=== PATIENT | female | born 1965 | race Two or more races ===

== ENCOUNTER 2020-01-10 22:54 | Emergency (ER) | payer BC, MEDICAID ==
[~2020-01-10] VITALS: Ht 154.9 cm; Wt 81.6 kg
[2020-01-10] MEDS ORDERED: methylPREDNISolone SOD SUCC 125 MG/2 ML VL IM ONE (23:45)
[2020-01-11 00:43] VITALS: BP 161/69
== END 2020-01-11 | disposition home or self-care (01) ==
LOC: ER 22:54
DX: L27.2 Dermatitis due to ingested food (principal); E11.9 Type 2 diabetes mellitus without complications
CPT/HCPCS: 82962; 96372; 99283; J2930

== ENCOUNTER 2024-09-07 03:16 | Inpatient (IN) | payer BC ==
[~2024-09-07] VITALS: Ht 154.9 cm; Wt 95.5 kg
[2024-09-07] VITALS (36 sets, daily range): BP systolic 80–148; BP diastolic 43–70; PULSE 75–116; RESP 11–25; TEMP 98.2–98.9; O2SAT 92–97
--- NOTE | 2024-09-07 03:58 | ED.PDOC ---
GI ASSESSMENT HPI Comments A 58 year-old female presents to the ED via wheelchair with a chief complaint of LLQ abdominal pain with associated N/V as of 0000 this morning. Patient reports that LLQ abdominal pain is constant, radiates to left back side, with no associated alleviating factors. Patient has no further complaints at this time and otherwise denies further associated symptoms of diarrhea, hematemesis, dysuria, migraine, dizziness, or fever. 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 Family History Family History: Reviewed,noncontributory to illness, No family hx of Cancer, No family hx of DM, No family hx of Heart slick, No family hx of HTN, No family hx ofKidney slick, No family hx of Liver slick, No family hx of Lung slick, No family hx of Stroke Social History Smoker: Non-Smoker Alcohol: Denies ETOH Use Drugs: Denies Drug Use Lives In: Home Constitutional: denies: chills, diaphoresis, fatigue, fever, malaise, sweats, weakness, others EENTM: denies: blurred vision, double vision, ear bleeding, ear discharge, ear drainage, ear pain, ear ringing, eye pain, eye redness, hearing loss, mouth pain, mouth swelling, nasal discharge, nose bleeding, nose congestion, nose pain, photophobia, tearing, throat pain, throat swelling, voice changes, others Respiratory: denies: cough, hemoptysis, orthopnea, SOB at rest, shortness of breath, SOB with excertion, stridor, wheezing, others Cardiovascular: denies: chest pain, dizzy spells, diaphoresis, Dyspnea on exertion, edema, irregular heart beat, left arm pain, lightheadedness, palpitations, PND, syncope, others Gastrointestinal: reports: abdominal pain, nausea, vomiting; denies: abdomen distended, blood streaked bowels, constipated, diarrhea, dysphagia, difficulty swallowing, hematemesis, melena, poor appetite, poor fluid intake, rectal bleeding, rectal pain, others Genitourinary: denies: abnormal vagina bleeding, burning, dyspareunia, dysuria, flank pain, frequency, hematuria, incontinence, pain, , vagina discharge, urgency, others Neurological: denies: dizziness, fainting, headache, left sided numbness, left sided weakness, numbness, paresthesia, pre-existing deficit, right sided numbness, right sided weakness, seizure, speech problems, tingling, tremors, weakness, others Musculoskeletal: denies: back pain, gout, joint pain, joint swelling, muscle pain, muscle stiffness, neck pain, others Integumetry: denies: bruises, change in color, change in hair/nails, dryness, laceration, lesions, lumps, rash, wounds, others Allergic/Immunocompromised: denies: Difficulty Healing, Frequent Infections, Hives, Itching, others Hematologic/Lymphatic: denies: anemia, blood clots, easy bleeding, easy bruising, swollen glands, others Endocrine: denies: excessive hunger, excessive sweating, excessive thirst, excessive urination, flushing, intolerance to cold, intolerance to heat, unexp lained weight gain, unexplained weight loss, others Psychiatric: denies: anxiety, bipolar disorder, depression, hopeless, panic disorder, schizophrenia, sleepless, suicidal, others All Other Systems: Reviewed and Negative Physical Exam General Appearance: Moderate Distress, Obese HEENT: Normal ENT Inspection, Pharynx Normal, TMs Normal Neck: Full Range of Motion, Non-Tender, Normal, Normal Inspection Respiratory: Chest Non-Tender, Lungs Clear, No Accessory Muscle Use, No Respiratory Distress, Normal Breath Sounds Cardiovascular: No Edema, No JVD, No Murmur, No Gallop, Normal Peripheral Pulses, Regular Rate/Rhythm Breast Exam: Deferred Gastrointestinal: No Organomegaly, No Pulsatile Mass, Normal Bowel Sounds, Soft, Tenderness (LLQ) Genitalia: Deferred Pelvic: Deferred Rectal: Deferred Extremities: No calf tenderness, Normal capillary refill, Normal inspection, Normal range of motion, Non-tender, No pedal edema Musculoskeletal : Apperance: Normal Neurologic: Alert, music instructor II-XII nml as Tested, No Motor Deficits, Normal Affect, Normal Mood, No Sensory Deficits Cerebellar Function: Normal Reflexes: Normal Skin: Dry, Normal Color, Warm Lymphatic: No Adenopathy Was a procedure done? Was a procedure done?: No GI differential Dx Differential Diagnosis: Constipation, Gastroenteritis, UTI, Dehydration, Bacterial, Parasitic, Viral X-Ray, Labs, Meds, VS Vital Signs Date Time Temp Pulse Resp B/P (MAP) Pulse Ox O2 Delivery O2 Flow Rate FiO2 09/07/24 06:44 102.5 126 20 149/79 (102) 96 102.5 09/07/24 05:41 126 20 149/79 09/07/24 05:11 109 20 187/59 09/07/24 05:06 98.2 109 20 187/59 (101) 98 98.2 09/07/24 03:35 97.3 86 20 187/68 (107) 98 97.3 Lab Test 09/07/24 04:24 09/07/24 03:45 Range/Units White Blood Count 11.7 H 4.4-10.8 10^3/uL Red Blood Count 4.78 4.0-5.20 10^6/uL Hemoglobin 14.3 12.2-16.2 g/dL Hematocrit 41.3 36.0-46.0 % Mean Corpuscular Volume 86.5 80.0-100.0 fL Mean Corpuscular Hemoglobin 30.0 28.0-32.0 pg Mean Corpuscular Hemoglobin Concent 34.7 32.0-36.0 g/dL Red Cell Distribution Width 13.0 11.8-14.3 % Platelet Count 163 140-450 10^3/uL Mean Platelet Volume 9.3 6.9-10.8 fL Neutrophils (%) (Auto) 89.5 H 37.0-80.0 % Lymphocytes (%) (Auto) 8.4 L 10.0-50.0 % Monocytes (%) (Auto) 1.3 0.0-12.0 % Eosinophils (%) (Auto) 0.3 0.0-7.0 % Basophils (%) (Auto) 0.5 0.0-2.0 % Neutrophils # (Auto) 10.5 H 1.6-8.6 10 ^3/uL Lymphocytes # (Auto) 1.0 0.4-5.4 10 ^3/uL Monocytes # (Auto) 0.2 0-1.3 10 ^3/uL Eosinophils # (Auto) 0 0-0.8 10 ^3/uL Basophils # (Auto) 0.1 0-0.2 10 ^3/uL Nucleated Red Blood Cells 0.0 % Sodium Level 137 136-145 mmol/L Potassium Level 4.0 3.5-5.1 mmol/L Chloride Level 101 98-107 mmol/L Carbon Dioxide Level 24 20-31 mmol/L Anion Gap 12 5-15 Blood Urea Nitrogen 31 H 9-23 mg/dL Creatinine 1.00 0.550-1.02 mg/dL Glomerular Filtration Rate Calc 65 >90 mL/min BUN/Creatinine Ratio 31.0 H 10.0-20.0 Serum Glucose 423 *H 74-106 mg/dL Calcium Level 9.3 8.7-10.4 mg/dL Total Bilirubin 0.5 0.2-1.0 mg/dL Aspartate Amino Transferase (AST) 16 13-40 U/L Alanine Aminotransferase (ALT) 21 7-40 U/L Alkaline Phosphatase 151 H 46-116 U/L Total Protein 7.3 5.7-8.2 g/dL Albumin 4.0 3.2-4.8 g/dL Lipase 47 12-53 U/L Urine Color Colorless Yellow Urine Clarity Clear Clear Urine pH 7.5 5.0-9.0 Urine Specific [place] 1.018 1.001-1.035 Urine Protein 1+ H Negative Urine Ketones Trace Negative Urine Blood Trace H Negative /uL Urine Nitrite Negative Negative Urine Bilirubin Negative Negative Urine Urobilinogen Normal Negative mg/dL Urine Leukocyte Esterase Negative Negative /uL Urine RBC 11 0 - 4 /hpf Urine Microscopic WBC 6 H 0-5 /HPF Urine Squamous Epithelial Cells Few <5 /hpf Urine Bacteria None seen None Seen /hpf Urine Glucose 4+ H Normal mg/dL Current Medications Medications (Trade) Dose Ordered Sig/Cheryl Route Start Time Stop Time Status Last Admin Ondansetron HCl (Zofran) 4 mg ONCE ONCE IV 09/07/24 04:00 09/07/24 04:01 DC 09/07/24 05:10 Sodium Chloride 1,000 ml @ 1,000 mls/hr Q1H ONCE IVB 09/07/24 04:00 09/07/24 04:59 DC 09/07/24 04:00 Morphine Sulfate 4 mg ONCE ONCE IV 09/07/24 04:00 09/07/24 04:01 DC 09/07/24 05:11 Patient alert. Complaining of abdominal pain nausea vomiting. Vitals stable. Answering questions. Was given pain medication. Was given Zofran. Blood sugar elevated pain Establish intravenous access. Was given fluids. Possible sepsis. Was given antibiotics. Explained to the family. Continue monitoring. Time of 1ST Reevaluation: 04:12 Reevaluation 1ST: Unchanged Patient Education/Counseling: Diagnosis, Treatment Family Education/Counseling: No Family Present SEPSIS Sepsis Screen Physician Orders Ct Ab Pel With Iv Con Only (09/07/24 03:59) Heplock Iv (09/07/24 03:59) Vital Signs Date Time Temp Pulse Resp B/P (MAP) Pulse Ox O2 Delivery O2 Flow Rate FiO2 09/07/24 06:44 102.5 126 20 149/79 (102) 96 102.5 09/07/24 05:41 126 20 149/79 09/07/24 05:11 109 20 187/59 09/07/24 05:06 98.2 109 20 187/59 (101) 98 98.2 09/07/24 03:35 97.3 86 20 187/68 (107) 98 97.3 Laboratory Tests Test 09/07/24 04:24 White Blood Count 11.7 10^3/uL (4.4-10.8) H Medications Medications Dose Ordered Sig/Cheryl Route Start Time Stop Time Status Last Admin Dose Admin Morphine Sulfate 4 mg ONCE ONCE IV 09/07/24 04:00 09/07/24 04:01 DC 09/07/24 05:11 Ondansetron HCl 4 mg ONCE ONCE IV 09/07/24 04:00 09/07/24 04:01 DC 09/07/24 05:10 Sodium Chloride 1,000 ml @ 1,000 mls/hr Q1H ONCE IVB 09/07/24 04:00 09/07/24 04:59 DC 09/07/24 04:00 Departure 1 Departure Time of Disposition: 06:52 Impression: Primary Impression: Sepsis, unspecified organism Qualified Codes: A41.9 - Sepsis, unspecified organism Disposition: 09 ADMITTED INPATIENT Admit to: Med Surg Condition: Guarded Critical Care Note Critical Care Time?: Yes (90 min-critical care time only) Critical care comment: Sepsis monitoring Stability Stability form required: No Heart Score Heart Score: Heart Score Response (Comments) Value History N/A 0 EKG N/A 0 Age N/A 0 Risk Factors N/A 0 Troponin N/A 0 Total 0 I personally scribed for TONIE LATHAM MD ([email or web address]) on 09/07/24 at 03:58. Electronically submitted by Dolly Willams ([email or web address]). I personally scribed for TONIE LATHAM MD ([email or web address]) on 09/07/24 at 05:45. Electronically submitted by Dolly Willams ([email or web address]). TONIE LATHAM MD Sep 07, 2024 03:58 ORVILLE LUGO MD Sep 07, 2024 06:53
[2024-09-07] MEDS: SODIUM CHLORIDE 0.9% 1,000 ML IVB ONE (04:00)
[2024-09-07 04:13] LABS: Urine Protein, UAD 1+ (Negative)
[2024-09-07 04:43] LABS: Hematocrit 41.3 % (36.0-46.0); Hemoglobin 14.3 g/dL (12.2-16.2); Mean Corpuscular Hemoglobin 30.0 pg (28.0-32.0); Mean Corpuscular Volume 86.5 fL (80.0-100.0); Nucleated Red Blood Cells % 0.0 %
[2024-09-07 05:00] LABS: Alanine Aminotransferase 21 U/L (7-40); Albumin 4.0 g/dL (3.2-4.8); Anion Gap 12 (5-15); BUN/Creatinine Ratio 31.0 (10.0-20.0); Bilirubin, Total 0.5 mg/dL (0.2-1.0); Calcium 9.3 mg/dL (8.7-10.4); Carbon Dioxide 24 mmol/L (20-31); Chloride 101 mmol/L (98-107); Lipase 47 U/L (12-53); Potassium 4.0 mmol/L (3.5-5.1); Sodium 137 mmol/L (136-145); Total Protein 7.3 g/dL (5.7-8.2)
[2024-09-07 05:07] LABS: Alkaline Phosphatase 151 U/L (46-116); Blood Urea Nitrogen 31 mg/dL (9-23); Glucose 423 mg/dL (74-106)
[2024-09-07] MEDS: ONDANSETRON HCL 4 MG/2 ML VIAL IV ONE (05:10)
[2024-09-07] MEDS: MORPHINE SULFATE 4 MG/ML SYR/VIAL IV ONE (05:11)
[2024-09-07] MEDS: IOHEXOL 300 MG/ML 100ML BOTTLE IJ ONE (06:46)
[2024-09-07] MEDS: ACETAMINOPHEN 325 MG TAB PO ONE (06:58)
[2024-09-07] MEDS: InsuLIN REG 1unit/0.01ml Soln (100units/ml) IV ONE (07:08)
--- NOTE | 2024-09-07 07:14 | DVH ---
CT CT AB PEL WITH IV CON ONLY INDICATION: LLQ pain EXAM DATE: 09/07/2024 06:24 AM COMPARISON: None RADIATION DOSE: CTDIvol: 21 mGy, DLP: 1339 mGy*cm PROCEDURE: Helical CT images were obtained of the abdomen and pelvis with IV contrast Sagittal and co cinthya reconstructions are provided. ORAL CONTRAST: None. ADDITIONAL IMAGES / REFORMATS: None All CT s cans at this medical facility are performed using dose modulation techniques as appropriate to a perf ormed exam including the following: Automated exposure control was utilized; adjustment of the MA and /or KV according to patient size; and use of iterative reconstruction technique. FINDINGS: LUNG BASE: Bibasilar atelectasis. LIVER: Normal. GALLBLADDER AND BILIARY TREE: Ryann clips. No intra- or extrahepatic biliary ductal dilation. PANCREAS: Normal. SPLEEN: Normal. BOWEL: Normal. Normal appendix. ADRENALS: Normal. KIDNEYS AND URETER: Mild left perinephric fat stranding and hydronephrosis but no kidney stone visual ized. BLADDER: Normal. REPRODUCTIVE ORGANS: Absent uterus. LYMPH NODES:No lymphadenopathy. PERITONEUM: No ascites or free air. No other fluid collection. VESSELS: Scattered atherosclerotic calcifications are noted. RETROPERITONEUM: Normal. ABDOMINAL WALL: Normal. BONES: Scattered osseous degenerative changes are noted. IMPRESSION: Mild left perinephric fat stranding and hydronephrosis but no kidney stone visualized.
--- NOTE | 2024-09-07 07:23 | DVH ---
CHEST RADIOGRAPH Indication: sob Technique: Single frontal view of the chest was obtained COMPARISON: None FINDINGS: Lines and Tubes: None Lungs: Mild increased interstitial prominence Pleura: No effusion. No pneumothorax. Cardiomediastinal contours: Unremarkable Bones: Unremarkable IMPRESSION: Viral pneumonia or mild pulmonary vascular congestion
[2024-09-07] MEDS ORDERED: ONDANSETRON HCL 4 MG/2 ML VIAL IV PRN (07:30)
[2024-09-07] MEDS ORDERED: TAMSULOSIN HYDROCHLORIDE 0.4 MG CAP PO ONE (07:30)
[2024-09-07] MEDS ORDERED: NITROGLYCERIN 0.4 MG SL TAB SL PRN ×3 (07:30→08:45)
[2024-09-07] MEDS ORDERED: DOCUSATE SOD 100 MG CAP PO PRN ×2 (07:30→07:45)
[2024-09-07] MEDS ORDERED: DEXTROSE (50%) 50ML SYRG IV PRN ×2 (07:30→07:45)
[2024-09-07] MEDS ORDERED: MORPHINE SULFATE INJ 2 MG/ml SYRG IV PRN (07:30)
[2024-09-07] MEDS ORDERED: SODIUM CHLORIDE 0.9% 1,000 ML IV ONE (07:30)
[2024-09-07] MEDS ORDERED: SODIUM CHLORIDE 0.9% 1,000 ML IV SCH (07:30)
[2024-09-07] MEDS ORDERED: cefTRIAXone 1GM/50ML D5W 50 ML IV ONE ×2 (07:30→07:58)
[2024-09-07 07:42] LABS: INR 0.97 (0.9-1.15); Partial Thromboplastin Time 23.8 SEC (24.5-34.5); Prothrombin Time 10.3 sec (9.3-11.8)
--- NOTE | 2024-09-07 08:01 | DVHHP2 ---
History of Present Illness Reason for Visit: Abdominal pain History of Present Illness 58-year-old female past medical history diabetes denies any surgical history chief complaint patient is with limited information on my exam appears to be in pain but she complains of left lower quadrant abdominal pain that started this morning. Patient states the pain starts in her left flank and radiates to the front lower abdomen. Does have nausea and vomiting no fever no chest pain no shortness with the breath patient denies any blood in her urine no diarrhea no black stools or blood in her stools. When evaluating patient's labs and imaging white count was found to be 11.7 otherwise CBC was unremarkable CMP shows a glucose of 423 but gap and CO2 is in normal range not likely DKA urine we will glucose and bacteria. CT scan abdomen pelvis shows left perinephric fat stranding and hydronephrosis but no kidney stone visualized. With these findings we will admit patient for IV antibiotics and pain management Past Medical History See HPI above Past Surgical History See HPI above Family History Reviewed, non-contributory to the management of this case. Past Social History The patient lives at home, denies smoking, alcohol or illicit drugs abuse. Review of Systems Constitutional: No: Fever, Chills, Sweats, Weakness, Malaise, Other Eyes: No: Pain, Vision change, Conjunctivae inflammation, Eyelid inflammation, Other, Redness Respiratory: No: Cough, Dry, Shortness of breath, SOB with excertion, Wheezing, Hemoptysis, Pleuritic Pain, Sputum, Wheezing, Other Cardiovascular: No: Chest Pain, Palpitations, Orthopnea, Paroxysmal Noc. Dyspn ea, Edema, Lt Headedness, Other Gastrointestinal: Abdominal Pain; No: Nausea, Vomiting, Diarrhea, Constipation, Melena, Hematochezia, Other Genitourinary: No Dysuria, No Frequency, No Incontinence, No Hematuria, No Retention, No Other Musculoskeletal: No: other, neck pain, shoulder pain, arm pain, back pain, hand pain, leg pain, foot pain Skin: No: Rash, Lesions, Jaundice, Bruising, Other Neurological: No: Weakness, Numbness, Incoordination, Change in speech, Confusion, Seizures, Other Allergies: Coded Allergies: Codeine (Verified Adverse Reaction, Severe, 12/08/12) Medications Current Medications Medications Dose Ordered Sig/Cheryl Route Start Time Stop Time Status Last Admin Dose Admin Cefepime HCl 50 ml @ 12.5 mls/hr Q8HR IV 09/07/24 14:00 Exam Vital Signs Vital Signs Date Time Temp Pulse Resp B/P (MAP) Pulse Ox O2 Delivery O2 Flow Rate FiO2 09/07/24 06:58 102.5 09/07/24 06:44 126 20 149/79 (102) 96 General Appearance: Alert, Oriented X3, Cooperative, No acute distress HEENT: Atraumatic, PERRLA, EOMI, Mucous membr. moist/pink Respiratory: Clear to auscultation, Normal air movement Cardiovascular: Regular rate, Normal S1, Normal S2, No murmurs Abdominal: Normal bowel sounds, Soft, No tenderness, No hepatospenomegaly, No masses Extremities: No clubbing, No cyanosis, No edema, Normal pulses, No tenderness/swelling Skin: No rashes, No breakdown, No significant lesion Neuro: Normal gait, Normal speech, Strength at 5/5 X4 ext, Normal tone, Sensation intact, Cranial nerves 3-12 NL Psych/Mental Status: Mental status NL, Mood NL Labs/Xrays CT scan abdomen pelvis shows left perinephric fat stranding and hydronephrosis but no kidney stone visualized. I reviewed labs, imaging CT scan abdomen pelvis, EKG and all diagnostic studies on this patient from ED records and the medical chart Labs Test 09/07/24 06:52 09/07/24 04:24 09/07/24 03:45 Range/Units POC Glucose 363 H 70-106 mg/dl White Blood Count 11.7 H 4.4-10.8 10^3/uL Red Blood Count 4.78 4.0-5.20 10^6/uL Hemoglobin 14.3 12.2-16.2 g/dL Hematocrit 41.3 36.0-46.0 % Mean Corpuscular Volume 86.5 80.0-100.0 fL Mean Corpuscular Hemoglobin 30.0 28.0-32.0 pg Mean Corpuscular Hemoglobin Concent 34.7 32.0-36.0 g/dL Red Cell Distribution Width 13.0 11.8-14.3 % Platelet Count 163 140-450 10^3/uL Mean Platelet Volume 9.3 6.9-10.8 fL Neutrophils (%) (Auto) 89.5 H 37.0-80.0 % Lymphocytes (%) (Auto) 8.4 L 10.0-50.0 % Monocytes (%) (Auto) 1.3 0.0-12.0 % Eosinophils (%) (Auto) 0.3 0.0-7.0 % Basophils (%) (Auto) 0.5 0.0-2.0 % Neutrophils # (Auto) 10.5 H 1.6-8.6 10 ^3/uL Lymphocytes # (Auto) 1.0 0.4-5.4 10 ^3/uL Monocytes # (Auto) 0.2 0-1.3 10 ^3/uL Eosinophils # (Auto) 0 0-0.8 10 ^3/uL Basophils # (Auto) 0.1 0-0.2 10 ^3/uL Nucleated Red Blood Cells 0.0 % Sodium Level 137 136-145 mmol/L Potassium Level 4.0 3.5-5.1 mmol/L Chloride Level 101 98-107 mmol/L Carbon Dioxide Level 24 20-31 mmol/L Anion Gap 12 5-15 Blood Urea Nitrogen 31 H 9-23 mg/dL Creatinine 1.00 0.550-1.02 mg/dL Glomerular Filtration Rate Calc 65 >90 mL/min BUN/Creatinine Ratio 31.0 H 10.0-20.0 Serum Glucose 423 *H 74-106 mg/dL Calcium Level 9.3 8.7-10.4 mg/dL Total Bilirubin 0.5 0.2-1.0 mg/dL Aspartate Amino Transferase (AST) 16 13-40 U/L Alanine Aminotransferase (ALT) 21 7-40 U/L Alkaline Phosphatase 151 H 46-116 U/L Total Protein 7.3 5.7-8.2 g/dL Albumin 4.0 3.2-4.8 g/dL Lipase 47 12-53 U/L Urine Color Colorless Yellow Urine Clarity Clear Clear Urine pH 7.5 5.0-9.0 Urine Specific [place] 1.018 1.001-1.035 Urine Protein 1+ H Negative Urine Ketones Trace Negative Urine Blood Trace H Negative /uL Urine Nitrite Negative Negative Urine Bilirubin Negative Negative Urine Urobilinogen Normal Negative mg/dL Urine Leukocyte Esterase Negative Negative /uL Urine RBC 11 0 - 4 /hpf Urine Microscopic WBC 6 H 0-5 /HPF Urine Squamous Epithelial Cells Few <5 /hpf Urine Bacteria None seen None Seen /hpf Urine Glucose 4+ H Normal mg/dL SEPSIS Sepsis Screen Date sepsis recognized/suspect: Sep 07, 2024 Time Sepsis recognized/suspect: 505 Recent Procedure: No On Antibiotic Therapy: No Respiratory Rate >20: No Heart Rate >90: Yes Temp<36 C (96.8 F) or >38.3 C: No SBP <90 or MAP <65 mmHG: No New Acute Mental Status Change: No Is the patient on CPAP, BIPAP,: No Physician Orders Ct Ab Pel With Iv Con Only (09/07/24 03:59) Heplock Iv (09/07/24 03:59) PTPTT (09/07/24 06:49) Urinalysis (09/07/24 06:49) Chest Portable (09/07/24 06:49) Accucheck (09/07/24 06:49) Blood Culture (09/07/24 06:49) Vancomycin 1gm/200ml Pm (09/07/24 07:00) Lactic Acid W/ Reflex Order (09/07/24 08:00) Cefepime 1gm/ 50ml (Maxipime 1gm/50ml) (09/07/24 14:00) Notify Md If Map <65 Or Bp<90 (09/07/24 06:49) If Map<65 Start Vasopressor (09/07/24 06:49) Sepsis Reassesment After Fluid (09/07/24 07:49) Admit (09/07/24 07:27) Allergies (09/07/24 07:27) Code Status (09/07/24 07:27) 0.9% Ns 1000 Ml (09/07/24 07:30) Ondansetron Hcl (Zofran) (09/07/24 07:30) Docusate Sodium Capsule (Colace Capsule) (09/07/24 07:30) Complete Blood Count (09/08/24 04:00) Comprehensive Metabolic Panel (09/08/24 04:00) Npo (Nothing By Mouth) Diet (09/07/24 Breakfast) Condition: Stable (09/07/24 07:27) BRP (09/07/24 07:27) Morphine Sulfate Injection (09/07/24 07:30) Sequential Compression Device (09/07/24 ) Nitroglycerin Sublingual (Ntrostat Subli (09/07/24 07:30) Stat Ekg For Chest Pain (09/07/24 07:27) Notify Of Changes From Base (09/07/24 07:27) Bursar For 24 Hours (09/07/24 07:27) Emergency Dysrhythmia Protocol (09/07/24 07:27) Rhythm Strips Once Every Shift (09/07/24 07:27) Oxygen By Nasal Cannula (09/07/24 07:27) NS (09/07/24 07:30) Glucose Blood (Accu-Chek Comfort Curve T (09/07/24 12:00) Mild Sliding Scale Npo - Q6hr (09/07/24 12:00) Dextrose 50% Syringe (09/07/24 07:30) Ceftriaxone Ivpb Rocephin (09/07/24 09:00) Ceftriaxone Ivpb Rocephin (09/07/24 07:30) Urine Bacterial Culture (09/07/24 07:27) Tamsulosin Hydrochloride (Flomax) (09/07/24 07:30) Tamsulosin Hydrochloride (Flomax) (09/07/24 18:00) Vital Signs Date Time Temp Pulse Resp B/P (MAP) Pulse Ox O2 Delivery O2 Flow Rate FiO2 09/07/24 06:58 102.5 09/07/24 06:44 102.5 126 20 149/79 (102) 96 102.5 09/07/24 05:41 126 20 149/79 09/07/24 05:11 109 20 187/59 09/07/24 05:06 98.2 109 20 187/59 (101) 98 98.2 09/07/24 03:35 97.3 86 20 187/68 (107) 98 97.3 Laboratory Tests Test 09/07/24 04:24 White Blood Count 11.7 10^3/uL (4.4-10.8) H Medications Medications Dose Ordered Sig/Cheryl Route Start Time Stop Time Status Last Admin Dose Admin Acetaminophen 650 mg ONCE ONCE PO 09/07/24 07:00 09/07/24 07:01 DC 09/07/24 06:58 650 MG Insulin Human Regular 6 units ONCE ONCE IV 09/07/24 06:30 09/07/24 06:31 DC 09/07/24 07:08 6 UNITS Morphine Sulfate 4 mg ONCE ONCE IV 09/07/24 04:00 09/07/24 04:01 DC 09/07/24 05:11 4 MG Ondansetron HCl 4 mg ONCE ONCE IV 09/07/24 04:00 09/07/24 04:01 DC 09/07/24 05:10 4 MG Sodium Chloride 1,000 ml @ 1,000 mls/hr Q1H ONCE IVB 09/07/24 04:00 09/07/24 04:59 DC 09/07/24 04:00 1,000 MLS/HR Assessment/Plan Assessment/Plan acute intractable abd pain can be from passed stone ct scan left perinephric fat stranding and hydronephrosis but no kidney stone visualized. ordered ceftriaxone for now ordered ivf ordered morphine prn pain ordered flomax acute leukocytosis ordered ua and culture fu results ordered ceftriaxone acute uncontrolled diabetes without dka ordered accucheck q6h for now fen/ppx diet ivf npo for now protonix plan admit to medicine Plan discussed with: Patient My Orders Orders - ARMANDO PUENTES DNP Procedure Category Date Status Time Admit ADMIT 09/07/24 Transmitted 07:27 Allergies [facility] 09/07/24 Transmitted 07:27 Code Status CODE 09/07/24 Transmitted 07:27 0.9% Ns 1000 Ml [facility]A 09/07/24 Transmitted 07:30 Ondansetron Hcl PHA 09/07/24 Transmitted (Zofran) 07:30 Docusate Sodium PHA 09/07/24 Transmitted Capsule (Colace 07:30 Complete Blood Count LAB 09/08/24 Verified 04:00 Comprehensive LAB 09/08/24 Verified Metabolic Panel 04:00 Npo (Nothing By DIET 09/07/24 Transmitted Mouth) Diet Breakfast Condition: Stable [facility] 09/07/24 Transmitted 07:27 BRP [facility] 09/07/24 Transmitted 07:[address] [facility] 09/07/24 Transmitted Injection 07:30 Sequential [facility] 09/07/24 Transmitted Compression Device Nitroglycerin [facility] 09/07/24 Transmitted Sublingual (Ntrostat 07:30 Stat Ekg For Chest [facility] 09/07/24 Transmitted Pain 07:27 Notify Of Changes [facility] 09/07/24 Transmitted From Base 07:27 Bursar For [facility] 09/07/24 Transmitted 24 Hours 07:27 Emergency Dysrhythmia [facility] 09/07/24 Transmitted Protocol 07:27 Rhythm Strips Once [facility] 09/07/24 Transmitted Every Shift 07:27 Oxygen By Nasal RT 09/07/24 Transmitted Cannula 07:27 NS [facility] 09/07/24 Transmitted 07:30 Glucose Blood [facility] 09/07/24 Transmitted (Accu-Chek Comfort 12:00 Mild Sliding Scale [facility] 09/07/24 Transmitted Npo - Q6hr 12:00 Dextrose 50% Syringe [facility] 09/07/24 Transmitted 07:30 Ceftriaxone Ivpb [facility] 09/07/24 Transmitted Rocephin 09:00 Ceftriaxone Ivpb PHA 09/07/24 Transmitted Rocephin 07:30 Urine Bacterial MARITA 09/07/24 Transmitted Culture 07:27 Tamsulosin PHA 09/07/24 Transmitted Hydrochloride (Flomax) 07:30 Tamsulosin PHA 09/07/24 Transmitted Hydrochloride (Flomax) 18:00 Date of Service: Sep 07, 2024 Billing Provider: ARMANDO PUENTES DNP Common Visit Codes: [id number] INP/OBS CARE (HIGH) ARMANDO PUENTES DNP Sep 07, 2024 08:01
[2024-09-07] MEDS: VANCOMYCIN 1GM/200ML PM 200 ML IV ONE (08:15)
[2024-09-07 08:28] LABS: Lactic Acid w/Reflex 6.1 mmol/L (0.4-2.0)
[2024-09-07] MEDS ORDERED: VANCOMYCIN PER PHARMACY 0 MG IV SCH (08:45)
[2024-09-07] MEDS: SODIUM CHLORIDE 0.9% 1,000 ML IV ONE ×2 (08:53)
[2024-09-07] MEDS: TAMSULOSIN HYDROCHLORIDE 0.4 MG CAP PO ONE (08:56)
[2024-09-07] MEDS ORDERED: cefTRIAXone 1GM/50ML D5W 50 ML IV SCH ×2 (09:00)
[2024-09-07] MEDS: IBUPROFEN 600 MG TAB PO ONE (09:29)
[2024-09-07] MEDS ORDERED: InsuLIN REG 1unit/0.01ml Soln (100units/ml) SC SCH ×3 (09:30→12:00)
[2024-09-07 10:11] LABS: COVID19 ANTIGEN SOFIA FIA NEGATIVE (NEGATIVE)
[2024-09-07] MEDS: SODIUM CHLORIDE 0.9% 1,000 ML IV SCH (10:11)
[2024-09-07] MEDS: PIPERACILLIN-TAZOB 3.375GM 100 ML IV SCH (11:09)
[2024-09-07] MEDS: InsuLIN REG 1unit/0.01ml Soln (100units/ml) SC SCH (11:13)
[2024-09-07] MEDS: ONDANSETRON HCL 4 MG/2 ML VIAL IV PRN (11:18)
[2024-09-07] MEDS: MORPHINE SULFATE INJ 2 MG/ml SYRG IV PRN (11:20)
[2024-09-07] MEDS ORDERED: ACCU-CHEK COMFORT CURVE STRIP VI SCH ×2 (12:00)
[2024-09-07] MEDS: ACCU-CHEK COMFORT CURVE STRIP VI SCH (12:27)
[2024-09-07] MEDS: NOREPINEPHRINE 8 MG/250ML KIT 250 ML IV ONE (12:29)
[2024-09-07] MEDS: NOREPINEPHRINE 8 MG/250ML KIT 250 ML IV SCH (12:30)
[2024-09-07] MEDS ORDERED: CEFEPIME 1GM/ 50ML 50 ML IV SCH (14:00)
[2024-09-07] MEDS: LIDOCAINE 1% (LOCAL ANESTH.) PF 5ml SDV ID ONE (16:20)
--- NOTE | 2024-09-07 17:13 | DVHSR ---
APPROVED REPORT EXAM: LIMITED Two-dimensional and M-mode echocardiogram with Doppler and color Doppler. Blood Pressure: 152/85 mmHg INDICATION Eval for cardiac function and ef RISK FACTORS Obesity: Height: 5' 1", Weight: 184 DIMENSIONS LVDd4.1 (3.8-5.7cm)LA (2D)3.6 (1.9-4.0cm)Aortic Root2.9 (2.0-3.7cm) LVDs2.8 (2.5-4.0cm)LA (MM) (1.9-4.0cm)Aortic Cusp Exc1.8 (1.5-2.0cm) EF (%) 60.0 (55-70%)Rt. Atrium3.9 (1.9-4.0cm)Asc. Aorta cm IVSd1.0 (0.7-1.1cm)RV (D) (1.8-2.4cm) PWd1.1 (0.7-1.1cm) Mitral Valve MitralMitral Stenosis E wave0.70m/sMV Mean GR.mmHg A wave1.00m/sMV Peak GR.mmHg E/A ratio0.72D MVAcm2 Aortic Valve Aortic ValveAortic Stenosis V10.90m/Jose Mean GR.3mmHg V21.20m/Jose Peak GR.6mmHg LVOT Diameter2.1 (1.8-2.4cm)Doppler AVA2.60cm2 Pulmonic Valve V20.50m/s Conclusion Technically good study. Sinus rhythm. Left atrial enlargement. Mild aortic root enlargement. Left ventricular systolic performance is preserved at 60% with normal right ventricular function. Trace mitral insufficiency. Mild tricuspid regurgitation. No pericardial effusion masses or vegetations discernible. Mild aortic sclerosis. Mild calcification of the left coronary cusp. Mild mitral annular calcificat ion. Tricuspid and pulmonic or structurally normal.
[2024-09-07] MEDS ORDERED: TAMSULOSIN HYDROCHLORIDE 0.4 MG CAP PO SCH (18:00)
[2024-09-07] MEDS: TAMSULOSIN HYDROCHLORIDE 0.4 MG CAP PO SCH (19:04)
[2024-09-07] MEDS: ENOXAPARIN SOD 80 MG/0.8ML SYRINGE SC SCH (22:17)
[2024-09-07] MEDS: SODIUM CHLOR 0.9% PF (SALINE LOCK) 10ML VIAL/SYR IV SCH (22:17)
[2024-09-07] MEDS: METOCLOPRAMIDE HCL 5MG/ml INJ 2ml VIAL IV ONE (22:17)
[2024-09-08] VITALS (50 sets, daily range): BP systolic 89–161; BP diastolic 36–85; PULSE 91–104; RESP 13–26; TEMP 98.6–98.8; O2SAT 94–99
[2024-09-08] MEDS ORDERED: VANCOMYCIN 750MG KIT 100 ML IV SCH
[2024-09-08] MEDS: VANCOMYCIN 750mg/150ml 150 ML IV SCH
[2024-09-08 04:17] LABS: Alanine Aminotransferase 28 U/L (7-40); Alkaline Phosphatase 111 U/L (46-116); Anion Gap 12 (5-15); BUN/Creatinine Ratio 30.7 (10.0-20.0); Bilirubin, Total 0.4 mg/dL (0.2-1.0); Chloride 107 mmol/L (98-107); Potassium 3.8 mmol/L (3.5-5.1); Sodium 138 mmol/L (136-145); Total Protein 5.7 g/dL (5.7-8.2)
[2024-09-08 04:37] LABS: Albumin 3.2 g/dL (3.2-4.8); Blood Urea Nitrogen 42 mg/dL (9-23); Calcium 7.5 mg/dL (8.7-10.4); Carbon Dioxide 19 mmol/L (20-31); Glucose 347 mg/dL (74-106)
[2024-09-08 04:41] LABS: Hematocrit 34.7 % (36.0-46.0)
[2024-09-08 04:43] LABS: Hemoglobin 11.6 g/dL (12.2-16.2); Mean Corpuscular Hemoglobin 29.4 pg (28.0-32.0); Mean Corpuscular Volume 87.9 fL (80.0-100.0)
[2024-09-08 05:14] LABS: Total Cells Counted 100.0 (100)
--- NOTE | 2024-09-08 11:36 | DVHPN2 ---
Subjective The patient seen and examined at bedside. Look very tired and confuse. Reviewed: Care Plan, H&P, Labs, Medications, Previous Orders, Radiology Changes from previous H/P or p: No Changes Eyes: No Pain, No Vision change, No Conjunctivae inflammation, No Eyelid inflammation, No Other, No Redness Cardiovascular: No Chest Pain, No Palpitations, No Orthopnea, No Paroxysmal Noc. Dyspnea, No Edema, No Lt Headedness, No Other Respiratory: No Cough, No Dry, No Shortness of breath, No SOB with excertion, No Wheezing, No Hemoptysis, No Pleuritic Pain, No Sputum, No Other Gastrointestinal: No Nausea, No Vomiting; Abdominal Pain; No Diarrhea, No Constipation, No Melena, No Hematochezia, No Other Genitourinary: No Dysuria, No Frequency, No Incontinence, No Hematuria, No Retention, No Other Musculoskeletal: No other, No neck pain, No shoulder pain, No arm pain, No back pain, No hand pain, No leg pain, No foot pain Skin: No Rash, No Lesions, No Jaundice, No Bruising, No Other Objective Vitals Vital Signs Date Time Temp Pulse Resp B/P (MAP) Pulse Ox O2 Delivery O2 Flow Rate FiO2 09/08/24 10:43 89/43 09/08/24 10:15 94 18 100 09/08/24 10:05 Nasal Cannula* 4 36 09/08/24 07:38 97.8 97.8 Intake/Output Intake and Output 09/08/24 07:00 Intake Total 5245.00 ml Output Total 1075 ml Balance 4170.00 ml Intake Oral 250 ml IV Total 4995.00 ml Output Urine Total 1075 ml General Appearance: Alert HEENT: Atraumatic, PERRLA, EOMI, Mucous membr. moist/pink Neck: Supple Lungs: Clear to auscultation, Normal air movement Cardiovascular: Regular rate, Normal S1, Normal S2, No murmurs, Gallops, Rubs Abdomen: Normal bowel sounds, Soft, No tenderness Neuro: Cranial nerves 3-12 NL Psych/Mental Status: Mental status NL Medications Current Medications Medications Dose Ordered Sig/Cheryl Route Start Time Stop Time Status Last Admin Dose Admin Ondansetron HCl 4 mg Q4HP PRN IV 09/07/24 07:45 09/07/24 20:19 4 MG Morphine Sulfate 2 mg Q4HPRN PRN IV 09/07/24 07:45 09/07/24 11:20 2 MG Dextrose 50 ml UD PRN IV 09/07/24 07:45 Sodium Chloride 1,000 ml @ 120 mls/hr Q8H20M IV 09/07/24 07:45 09/08/24 06:00 120 MLS/HR Docusate Sodium 100 mg BIDPRN PRN PO 09/07/24 07:45 Tamsulosin HCl 0.4 mg QPM PO 09/07/24 18:00 09/07/24 19:04 0.4 MG Piperacillin Sod/ Tazobactam Sod 100 ml @ 25 mls/hr Q8H IV 09/07/24 11:00 09/08/24 11:22 25 MLS/HR Nitroglycerin 0.4 mg Q5MINP PRN SL 09/07/24 08:45 Vancomycin HCl 0 ml @ 0 mls/hr UD IV 09/07/24 08:45 Insulin Human Regular Q4HR SC 09/07/24 12:00 09/08/24 10:09 6 UNITS Diagnostic Test (Pha) 1 strip Q4H 09/07/24 12:00 09/08/24 10:00 1 STRIP Enoxaparin Sodium 80 mg Q12HR SC 09/07/24 22:00 09/07/24 22:17 80 MG Vancomycin HCl 100 ml @ 100 mls/hr Q12H IV 09/08/24 00:00 Cancel Norepinephrine Bitartrate 250 ml @ 3.75 mls/hr Q24H IV 09/07/24 12:30 09/08/24 06:42 3.75 MLS/HR Vancomycin HCl 150 ml @ 150 mls/hr Q12H IV 09/08/24 00:00 Hold 09/08/24 00:00 150 MLS/HR Sodium Chloride 10 ml QSHIFT@10,22 IV 09/07/24 22:00 09/08/24 09:45 10 ML Laboratory Results Laboratory Tests 09/08/24 03:30 09/08/24 04:26 Chemistry Test 09/08/24 03:30 Albumin 3.2 g/dL (3.2-4.8) Calcium Level 7.5 mg/dL (8.7-10.4) L Total Protein 5.7 g/dL (5.7-8.2) LFT Test 09/08/24 03:30 Alanine Aminotransferase (ALT) 28 U/L (7-40) Alkaline Phosphatase 111 U/L (46-116) Aspartate Amino Transferase (AST) 26 U/L (13-40) Total Bilirubin 0.4 mg/dL (0.2-1.0) Urinalysis Test 09/07/24 03:45 Urine Color Colorless (Yellow) Urine Clarity Clear (Clear) Urine pH 7.5 (5.0-9.0) Urine Specific [place] 1.018 (1.001-1.035) Urine Protein 1+ (Negative) H Urine Ketones Trace (Negative) Urine Blood Trace /uL (Negative) H Urine Nitrite Negative (Negative) Urine Bilirubin Negative (Negative) Urine Urobilinogen Normal mg/dL (Negative) Urine Leukocyte Esterase Negative /uL (Negative) Urine RBC 11 /hpf (0 - 4) Urine Microscopic WBC 6 /HPF (0-5) H Urine Squamous Epithelial Cells Few /hpf (<5) Urine Bacteria None seen /hpf (None Seen) Urine Glucose 4+ mg/dL (Normal) H Microbiology Microbiology Date/Time Source Procedure Growth Status 09/07/24 07:46 Blood Blood Culture - Preliminary Resulted 09/07/24 03:45 Voided Urine Urine Culture - Preliminary Resulted Labs and/or images reviewed: Labs reviewed by me Assessment/Plan Assessment/Plan Sepsis , probable from the PNA. cxr found pna viral but mild pulmonary congestion will need to monitor for resp distress o2 prn to keep sats >92% pt found to have lactic 6.1 Continue sepsis protocol Will follow up with blood cultures, urine culture. acute intractable abd pain can be from passed stone ct scan left perinephric fat stranding and hydronephrosis but no kidney stone visualized. Continue IV ceftriaxone for now Continue ivf Continue morphine prn pain Continue flomax Leukocytosis Uncontrolled diabetes without dka Accue check and SSI Continuing Levophed Discussed with daughter and son at bedside This medical document was created using an electronic medical record system with [employer] direct computerized dictation system. Although this document has been carefully reviewed, there may still be some phonetic and typographical errors. These areas are purely typographical due to imperfections of the software programs, and do not reflect any compromise in the patient's medical care. Plan discussed with: Patient, Daughter, Son Date of Service: Sep 08, 2024 Billing Provider: AMILCAR SARABIA MD Common Visit Codes: [id number] INP/OBS CARE(HIGH) AMILCAR SARABIA MD Sep 08, 2024 11:36
--- NOTE | 2024-09-08 13:52 | CONS ---
Pharmacy Clinical Information: Please closely monitor PLTs... PLT = 95 today, were 163 yesterday. Patient is on enoxaparin and Zosyn, both of which can cause thrombocytopenia. LAMAR SOSA PHARMACIST Sep 08, 2024 13:52
[2024-09-08] MEDS: VANCOMYCIN 1GM/200ML PM 200 ML IV ONE (15:42)
[2024-09-08] MEDS: ACCU-CHEK COMFORT CURVE STRIP VI SCH (21:36)
[2024-09-09] VITALS (24 sets, daily range): BP systolic 87–160; BP diastolic 9–81; PULSE 81–98; RESP 12–20; TEMP 97.5–98.7; O2SAT 91–98
[2024-09-09 05:33] LABS: Hematocrit 31.6 % (36.0-46.0); Hemoglobin 10.7 g/dL (12.2-16.2); Mean Corpuscular Hemoglobin 29.2 pg (28.0-32.0); Mean Corpuscular Volume 86.6 fL (80.0-100.0)
[2024-09-09 06:06] LABS: Alanine Aminotransferase 23 U/L (7-40); Anion Gap 8 (5-15); BUN/Creatinine Ratio 41.3 (10.0-20.0); Carbon Dioxide 21 mmol/L (20-31); Sodium 142 mmol/L (136-145)
[2024-09-09 06:08] LABS: Bilirubin, Total 0.4 mg/dL (0.2-1.0)
[2024-09-09 06:14] LABS: Chloride 113 mmol/L (98-107); Glucose 185 mg/dL (74-106); Potassium 3.5 mmol/L (3.5-5.1)
[2024-09-09 06:15] LABS: Albumin 2.9 g/dL (3.2-4.8); Alkaline Phosphatase 157 U/L (46-116); Blood Urea Nitrogen 33 mg/dL (9-23); Calcium 7.3 mg/dL (8.7-10.4); Total Protein 5.4 g/dL (5.7-8.2)
[2024-09-09 06:29] LABS: Total Cells Counted 100.0 (100)
--- NOTE | 2024-09-09 09:30 | DVH ---
NUCLEAR MEDICINE VENTILATION/PERFUSION LUNG SCAN. INDICATION: PULMONARY EMBOLISM COMPARISON: None TECHNIQUE: Following intravenous demonstration of 6.2 millicuries of technetium 99m MAA, and inhala tion of 5 mCi of Xe 133 scintigrams were obtained in multiple projections of the lungs. FINDINGS: There is normal uptake of radionuclide on both the ventilation and perfusion portions of the examinat ion. No mismatched perfusion defects are demonstrated. Uptake is normally homogeneous. IMPRESSION: Low probability for PE.
[2024-09-09] MEDS: VANCOMYCIN 1GM/200ML PM 200 ML IV SCH (11:00)
--- NOTE | 2024-09-09 12:02 | DVHPN2 ---
Subjective The patient seen and examined at bedside. Look very tired and confuse. Reviewed: Care Plan, H&P, Labs, Medications, Previous Orders, Radiology Changes from previous H/P or p: No Changes Eyes: No Pain, No Vision change, No Conjunctivae inflammation, No Eyelid inflammation, No Other, No Redness Cardiovascular: No Chest Pain, No Palpitations, No Orthopnea, No Paroxysmal Noc. Dyspnea, No Edema, No Lt Headedness, No Other Respiratory: No Cough, No Dry, No Shortness of breath, No SOB with excertion, No Wheezing, No Hemoptysis, No Pleuritic Pain, No Sputum, No Other Gastrointestinal: No Nausea, No Vomiting; Abdominal Pain; No Diarrhea, No Constipation, No Melena, No Hematochezia, No Other Genitourinary: No Dysuria, No Frequency, No Incontinence, No Hematuria, No Retention, No Other Musculoskeletal: No other, No neck pain, No shoulder pain, No arm pain, No back pain, No hand pain, No leg pain, No foot pain Skin: No Rash, No Lesions, No Jaundice, No Bruising, No Other Objective Vitals Vital Signs Date Time Temp Pulse Resp B/P (MAP) Pulse Ox O2 Delivery O2 Flow Rate FiO2 09/09/24 10:19 86 18 124/65 09/09/24 08:52 91 Nasal Cannula* 2 28 09/09/24 07:54 97.8 97.8 Intake/Output Intake and Output 09/09/24 07:00 Intake Total 3051.25 ml Output Total 2300 ml Balance 751.25 ml Intake Oral 0 ml IV Total 3051.25 ml Output Urine Total 2300 ml General Appearance: Alert HEENT: Atraumatic, PERRLA, EOMI, Mucous membr. moist/pink Neck: Supple Lungs: Clear to auscultation, Normal air movement Cardiovascular: Regular rate, Normal S1, Normal S2, No murmurs, Gallops, Rubs Abdomen: Normal bowel sounds, Soft, No tenderness Neuro: Cranial nerves 3-12 NL Psych/Mental Status: Mental status NL Medications Current Medications Medications Dose Ordered Sig/Cheryl Route Start Time Stop Time Status Last Admin Dose Admin Ondansetron HCl 4 mg Q4HP PRN IV 09/07/24 07:45 09/09/24 06:37 4 MG Morphine Sulfate 2 mg Q4HPRN PRN IV 09/07/24 07:45 09/09/24 06:29 2 MG Dextrose 50 ml UD PRN IV 09/07/24 07:45 Sodium Chloride 1,000 ml @ 120 mls/hr Q8H20M IV 09/07/24 07:45 09/09/24 06:28 120 MLS/HR Docusate Sodium 100 mg BIDPRN PRN PO 09/07/24 07:45 Tamsulosin HCl 0.4 mg QPM PO 09/07/24 18:00 09/08/24 18:20 0.4 MG Piperacillin Sod/ Tazobactam Sod 100 ml @ 25 mls/hr Q8H IV 09/07/24 11:00 09/09/24 11:15 25 MLS/HR Nitroglycerin 0.4 mg Q5MINP PRN SL 09/07/24 08:45 Vancomycin HCl 0 ml @ 0 mls/hr UD IV 09/07/24 08:45 Insulin Human Regular Q4HR SC 09/07/24 12:00 09/09/24 10:33 3 UNITS Enoxaparin Sodium 80 mg Q12HR SC 09/07/24 22:00 09/09/24 10:34 80 MG Vancomycin HCl 100 ml @ 100 mls/hr Q12H IV 09/08/24 00:00 Cancel Norepinephrine Bitartrate 250 ml @ 3.75 mls/hr Q24H IV 09/07/24 12:30 09/08/24 06:42 3.75 MLS/HR Sodium Chloride 10 ml QSHIFT@10,22 IV 09/07/24 22:00 09/09/24 10:18 10 ML Diagnostic Test (Pha) 1 strip Q4H 09/08/24 22:00 09/09/24 10:19 1 STRIP Vancomycin HCl 200 ml @ 200 mls/hr Q12H IV 09/09/24 11:00 Laboratory Results Laboratory Tests 09/09/24 05:07 Chemistry Test 09/09/24 05:07 Albumin 2.9 g/dL (3.2-4.8) L Calcium Level 7.3 mg/dL (8.7-10.4) L Total Protein 5.4 g/dL (5.7-8.2) L LFT Test 09/09/24 05:07 Alanine Aminotransferase (ALT) 23 U/L (7-40) Alkaline Phosphatase 157 U/L (46-116) H Aspartate Amino Transferase (AST) 23 U/L (13-40) Total Bilirubin 0.4 mg/dL (0.2-1.0) Urinalysis Test 09/07/24 03:45 Urine Color Colorless (Yellow) Urine Clarity Clear (Clear) Urine pH 7.5 (5.0-9.0) Urine Specific [place] 1.018 (1.001-1.035) Urine Protein 1+ (Negative) H Urine Ketones Trace (Negative) Urine Blood Trace /uL (Negative) H Urine Nitrite Negative (Negative) Urine Bilirubin Negative (Negative) Urine Urobilinogen Normal mg/dL (Negative) Urine Leukocyte Esterase Negative /uL (Negative) Urine RBC 11 /hpf (0 - 4) Urine Microscopic WBC 6 /HPF (0-5) H Urine Squamous Epithelial Cells Few /hpf (<5) Urine Bacteria None seen /hpf (None Seen) Urine Glucose 4+ mg/dL (Normal) H Microbiology Microbiology Date/Time Source Procedure Growth Status 09/07/24 07:46 Blood Blood Culture - Preliminary Resulted 09/07/24 03:45 Voided Urine Urine Culture - Final Complete Labs and/or images reviewed: Labs reviewed by me Assessment/Plan Assessment/Plan Sepsis , probable from the PNA. cxr found pna viral but mild pulmonary congestion will need to monitor for resp distress o2 prn to keep sats >92% pt found to have lactic 6.1 Continue sepsis protocol Will follow up with blood cultures, urine culture. acute intractable abd pain can be from passed [place] ct scan left perinephric fat stranding and hydronephrosis but no kidney stone visualized. Continue IV ceftriaxone for now Continue ivf Continue morphine prn pain Continue flomax Leukocytosis Uncontrolled diabetes without dka Accue check and SSI Continuing Levophed Discussed with daughter and son at bedside This medical document was created using an electronic medical record system with [employer] direct computerized dictation system. Although this document has been carefully reviewed, there may still be some phonetic and typographical errors. These areas are purely typographical due to imperfections of the software programs, and do not reflect any compromise in the patient's medical care. Plan discussed with: Patient Date of Service: Sep 09, 2024 Billing Provider: AMILCAR SARABIA MD Common Visit Codes: [id number] INP/OBS CARE(HIGH) AMILCAR SARAIBA MD Sep 09, 2024 12:02
[2024-09-09] MEDS ORDERED: ACETAMINOPHEN 325 MG TAB PO PRN (16:15)
[2024-09-10] VITALS (8 sets, daily range): BP systolic 111–171; BP diastolic 64–97; PULSE 73–80; RESP 15–18; TEMP 97.7–98.5; O2SAT 92–97
[2024-09-10 10:58] LABS: Hematocrit 32.7 % (36.0-46.0); Hemoglobin 11.0 g/dL (12.2-16.2); Mean Corpuscular Hemoglobin 29.4 pg (28.0-32.0); Mean Corpuscular Volume 87.5 fL (80.0-100.0)
[2024-09-10 11:45] LABS: Alanine Aminotransferase 25 U/L (7-40); Anion Gap 8 (5-15); BUN/Creatinine Ratio 38.1 (10.0-20.0); Carbon Dioxide 22 mmol/L (20-31); Sodium 140 mmol/L (136-145)
[2024-09-10 11:46] LABS: Bilirubin, Total 0.7 mg/dL (0.2-1.0)
--- NOTE | 2024-09-10 11:46 | DVHPN2 ---
Subjective The patient seen and examined at bedside. Feel better today Reviewed: Care Plan, H&P, Labs, Medications, Previous Orders, Radiology Changes from previous H/P or p: No Changes Eyes: No Pain, No Vision change, No Conjunctivae inflammation, No Eyelid inflammation, No Other, No Redness Cardiovascular: No Chest Pain, No Palpitations, No Orthopnea, No Paroxysmal Noc. Dyspnea, No Edema, No Lt Headedness, No Other Respiratory: No Cough, No Dry, No Shortness of breath, No SOB with excertion, No Wheezing, No Hemoptysis, No Pleuritic Pain, No Sputum, No Other Gastrointestinal: No Nausea, No Vomiting; Abdominal Pain; No Diarrhea, No Constipation, No Melena, No Hematochezia, No Other Genitourinary: No Dysuria, No Frequency, No Incontinence, No Hematuria, No Retention, No Other Musculoskeletal: No other, No neck pain, No shoulder pain, No arm pain, No back pain, No hand pain, No leg pain, No foot pain Skin: No Rash, No Lesions, No Jaundice, No Bruising, No Other Objective Vitals Vital Signs Date Time Temp Pulse Resp B/P (MAP) Pulse Ox O2 Delivery O2 Flow Rate FiO2 09/10/24 10:00 78 15 146/84 09/10/24 09:00 98.3 97 98.3 09/10/24 08:00 Nasal Cannula* 2 28 Intake/Output Intake and Output 09/10/24 07:00 Intake Total 650 ml Output Total 800 ml Balance -150 ml Intake Oral 300 ml IV Total 350 ml Output Urine Total 800 ml # Voids 2 # Bowel Movements 2 General Appearance: Alert, Cooperative, No acute distress HEENT: Atraumatic, PERRLA, EOMI, Mucous membr. moist/pink Neck: Supple Lungs: Clear to auscultation, Normal air movement Cardiovascular: Regular rate, Normal S1, Normal S2, No murmurs, Gallops, Rubs Abdomen: Normal bowel sounds, Soft, No tenderness Neuro: Cranial nerves 3-12 NL Psych/Mental Status: Mental status NL Medications Current Medications Medications Dose Ordered Sig/Cheryl Route Start Time Stop Time Status Last Admin Dose Admin Ondansetron HCl 4 mg Q4HP PRN IV 09/07/24 07:45 09/10/24 09:59 4 MG Morphine Sulfate 2 mg Q4HPRN PRN IV 09/07/24 07:45 09/10/24 10:00 2 MG Dextrose 50 ml UD PRN IV 09/07/24 07:45 Sodium Chloride 1,000 ml @ 120 mls/hr Q8H20M IV 09/07/24 07:45 09/10/24 02:33 120 MLS/HR Docusate Sodium 100 mg BIDPRN PRN PO 09/07/24 07:45 Tamsulosin HCl 0.4 mg QPM PO 09/07/24 18:00 09/09/24 18:26 0.4 MG Piperacillin Sod/ Tazobactam Sod 100 ml @ 25 mls/hr Q8H IV 09/07/24 11:00 09/10/24 02:37 25 MLS/HR Nitroglycerin 0.4 mg Q5MINP PRN SL 09/07/24 08:45 Vancomycin HCl 0 ml @ 0 mls/hr UD IV 09/07/24 08:45 Insulin Human Regular Q4HR SC 09/07/24 12:00 09/10/24 10:33 2 UNITS Enoxaparin Sodium 80 mg Q12HR SC 09/07/24 22:00 09/09/24 10:34 80 MG Vancomycin HCl 100 ml @ 100 mls/hr Q12H IV 09/08/24 00:00 Cancel Sodium Chloride 10 ml QSHIFT@10,22 IV 09/07/24 22:00 09/09/24 21:49 10 ML Diagnostic Test (Pha) 1 strip Q4H 09/08/24 22:00 09/10/24 10:34 1 STRIP Vancomycin HCl 200 ml @ 200 mls/hr Q12H IV 09/09/24 11:00 09/10/24 10:00 200 MLS/HR Acetaminophen 650 mg Q6HP PRN PO 09/09/24 16:15 Laboratory Results Laboratory Tests 09/09/24 05:07 09/10/24 05:09 Urinalysis Test 09/07/24 03:45 Urine Color Colorless (Yellow) Urine Clarity Clear (Clear) Urine pH 7.5 (5.0-9.0) Urine Specific [place] 1.018 (1.001-1.035) Urine Protein 1+ (Negative) H Urine Ketones Trace (Negative) Urine Blood Trace /uL (Negative) H Urine Nitrite Negative (Negative) Urine Bilirubin Negative (Negative) Urine Urobilinogen Normal mg/dL (Negative) Urine Leukocyte Esterase Negative /uL (Negative) Urine RBC 11 /hpf (0 - 4) Urine Microscopic WBC 6 /HPF (0-5) H Urine Squamous Epithelial Cells Few /hpf (<5) Urine Bacteria None seen /hpf (None Seen) Urine Glucose 4+ mg/dL (Normal) H Microbiology Microbiology Date/Time Source Procedure Growth Status 09/07/24 07:46 Blood Blood Culture - Preliminary Resulted 09/07/24 03:45 Voided Urine Urine Culture - Final Complete Labs and/or images reviewed: Labs reviewed by me Assessment/Plan Assessment/Plan Sepsis , probable from the PNA. cxr found pna viral but mild pulmonary congestion will need to monitor for resp distress o2 prn to keep sats >92% pt found to have lactic 6.1 Continue sepsis protocol Will follow up with blood cultures, urine culture. acute intractable abd pain can be from passed [place] ct scan left perinephric fat stranding and hydronephrosis but no kidney stone visualized. Continue IV ceftriaxone for now Continue ivf Continue morphine prn pain Continue flomax Leukocytosis Uncontrolled diabetes without dka Accue check and SSI Off Levophed Discussed with daughter at bedside This medical document was created using an electronic medical record system with [employer] direct computerized dictation system. Although this document has been carefully reviewed, there may still be some phonetic and typographical errors. These areas are purely typographical due to imperfections of the software programs, and do not reflect any compromise in the patient's medical care. Plan discussed with: Patient, Daughter My Orders Orders - AMILCAR SARABIA MD Procedure Category Date Status Time Acetaminophen Tablet PHA 09/09/24 In Process (Tylenol Tablet) 16:15 Consistent DIET 09/09/24 Transmitted Carb(Ccho)Diabetes Dinner Complete Blood Count LAB 09/10/24 In Process 10:05 Comprehensive LAB 09/10/24 Logged Metabolic Panel 10:05 Manual Differential LAB 09/10/24 In Process 05:09 Date of Service: Sep 10, 2024 Billing Provider: AMILCAR SARABIA MD Common Visit Codes: [id number] INP/OBS CARE(HIGH) AMILCAR SARABIA MD Sep 10, 2024 11:46
[2024-09-10 11:47] LABS: Total Cells Counted 100.0 (100)
[2024-09-10 11:50] LABS: Albumin 3.0 g/dL (3.2-4.8); Alkaline Phosphatase 347 U/L (46-116); Blood Urea Nitrogen 24 mg/dL (9-23); Calcium 7.5 mg/dL (8.7-10.4); Chloride 110 mmol/L (98-107); Glucose 140 mg/dL (74-106); Potassium 3.4 mmol/L (3.5-5.1); Total Protein 5.6 g/dL (5.7-8.2)
[2024-09-10] MEDS: IBUPROFEN 600 MG TAB PO PRN (13:17)
[2024-09-11 01:00] VITALS: BP 126/79; PULSE 79; RESP 18; TEMP 97.8; O2SAT 96
[2024-09-11 04:50] VITALS: BP 130/67; PULSE 70; RESP 20; TEMP 97.6; O2SAT 93
[2024-09-11 08:00] VITALS: PULSE 72; O2SAT 98
[2024-09-11 09:00] VITALS: BP 138/79; PULSE 71; RESP 16; TEMP 98; O2SAT 96
[2024-09-11 10:00] LABS: Hematocrit 36.5 % (36.0-46.0); Hemoglobin 12.6 g/dL (12.2-16.2); Mean Corpuscular Hemoglobin 29.8 pg (28.0-32.0); Mean Corpuscular Volume 86.4 fL (80.0-100.0); Nucleated Red Blood Cells % 0.1 %
[2024-09-11 10:04] LABS: Anion Gap 8 (5-15); Carbon Dioxide 24 mmol/L (20-31); Sodium 142 mmol/L (136-145)
[2024-09-11 10:08] LABS: Calcium 8.4 mg/dL (8.7-10.4); Chloride 110 mmol/L (98-107); Potassium 3.2 mmol/L (3.5-5.1)
[2024-09-11 10:10] LABS: Glucose 113 mg/dL (74-106)
--- NOTE | 2024-09-11 11:30 | DVHPN2 ---
Subjective The patient seen and examined at bedside. Feel better today Reviewed: Care Plan, H&P, Labs, Medications, Previous Orders, Radiology Eyes: No Pain, No Vision change, No Conjunctivae inflammation, No Eyelid inflammation, No Other, No Redness Cardiovascular: No Chest Pain, No Palpitations, No Orthopnea, No Paroxysmal Noc. Dyspnea, No Edema, No Lt Headedness, No Other Respiratory: No Cough, No Dry, No Shortness of breath, No SOB with excertion, No Wheezing, No Hemoptysis, No Pleuritic Pain, No Sputum, No Other Gastrointestinal: No Nausea, No Vomiting; Abdominal Pain; No Diarrhea, No Constipation, No Melena, No Hematochezia, No Other Genitourinary: No Dysuria, No Frequency, No Incontinence, No Hematuria, No Retention, No Other Musculoskeletal: No other, No neck pain, No shoulder pain, No arm pain, No back pain, No hand pain, No leg pain, No foot pain Skin: No Rash, No Lesions, No Jaundice, No Bruising, No Other Objective Vitals Vital Signs Date Time Temp Pulse Resp B/P (MAP) Pulse Ox O2 Delivery O2 Flow Rate FiO2 09/11/24 10:15 138/79 09/11/24 09:00 98.0 71 16 96 98.0 09/10/24 20:00 Nasal Cannula* 2 28 Intake/Output Intake and Output 09/11/24 07:00 Intake Total 3240 ml Output Total 4400 ml Balance -1160 ml Intake Oral 1900 ml IV Total 1340 ml Output Urine Total 4400 ml # Bowel Movements 2 General Appearance: Alert, Cooperative, No acute distress HEENT: Atraumatic, PERRLA, EOMI, Mucous membr. moist/pink Neck: Supple Lungs: Clear to auscultation, Normal air movement Cardiovascular: Regular rate, Normal S1, Normal S2, No murmurs, Gallops, Rubs Abdomen: Normal bowel sounds, Soft, No tenderness Neuro: Cranial nerves 3-12 NL Psych/Mental Status: Mental status NL Medications Current Medications Medications Dose Ordered Sig/Cheryl Route Start Time Stop Time Status Last Admin Dose Admin Ondansetron HCl 4 mg Q4HP PRN IV 09/07/24 07:45 09/10/24 09:59 4 MG Morphine Sulfate 2 mg Q4HPRN PRN IV 09/07/24 07:45 09/10/24 10:00 2 MG Dextrose 50 ml UD PRN IV 09/07/24 07:45 Sodium Chloride 1,000 ml @ 120 mls/hr Q8H20M IV 09/07/24 07:45 09/10/24 02:33 120 MLS/HR Docusate Sodium 100 mg BIDPRN PRN PO 09/07/24 07:45 Tamsulosin HCl 0.4 mg QPM PO 09/07/24 18:00 09/10/24 17:18 0.4 MG Piperacillin Sod/ Tazobactam Sod 100 ml @ 25 mls/hr Q8H IV 09/07/24 11:00 09/11/24 10:42 25 MLS/HR Nitroglycerin 0.4 mg Q5MINP PRN SL 09/07/24 08:45 Vancomycin HCl 0 ml @ 0 mls/hr UD IV 09/07/24 08:45 Insulin Human Regular Q4HR SC 09/07/24 12:00 09/11/24 10:42 3 UNITS Enoxaparin Sodium 80 mg Q12HR SC 09/07/24 22:00 09/11/24 10:14 80 MG Vancomycin HCl 100 ml @ 100 mls/hr Q12H IV 09/08/24 00:00 Cancel Sodium Chloride 10 ml QSHIFT@10,22 IV 09/07/24 22:00 09/11/24 10:15 10 ML Diagnostic Test (Pha) 1 strip Q4H 09/08/24 22:00 09/11/24 10:24 1 STRIP Vancomycin HCl 200 ml @ 200 mls/hr Q12H IV 09/09/24 11:00 09/11/24 10:42 200 MLS/HR Ibuprofen 600 mg Q6HP PRN PO 09/10/24 13:00 09/10/24 13:17 600 MG Amlodipine Besylate 5 mg BID PO 09/10/24 22:00 09/11/24 10:15 5 MG Laboratory Results Laboratory Tests 09/11/24 08:42 Chemistry Test 09/11/24 08:42 Calcium Level 8.4 mg/dL (8.7-10.4) L Urinalysis Test 09/07/24 03:45 Urine Color Colorless (Yellow) Urine Clarity Clear (Clear) Urine pH 7.5 (5.0-9.0) Urine Specific [place] 1.018 (1.001-1.035) Urine Protein 1+ (Negative) H Urine Ketones Trace (Negative) Urine Blood Trace /uL (Negative) H Urine Nitrite Negative (Negative) Urine Bilirubin Negative (Negative) Urine Urobilinogen Normal mg/dL (Negative) Urine Leukocyte Esterase Negative /uL (Negative) Urine RBC 11 /hpf (0 - 4) Urine Microscopic WBC 6 /HPF (0-5) H Urine Squamous Epithelial Cells Few /hpf (<5) Urine Bacteria None seen /hpf (None Seen) Urine Glucose 4+ mg/dL (Normal) H Microbiology Microbiology Date/Time Source Procedure Growth Status 09/07/24 07:46 Blood Blood Culture - Preliminary Resulted 09/07/24 03:45 Voided Urine Urine Culture - Final Complete Assessment/Plan Assessment/Plan Sepsis , probable from the PNA. cxr found pna viral but mild pulmonary congestion will need to monitor for resp distress o2 prn to keep sats >92% pt found to have lactic 6.1 Continue sepsis protocol Will follow up with blood cultures, urine culture. acute intractable abd pain can be from passed stone ct scan left perinephric fat stranding and hydronephrosis but no kidney stone visualized. Continue IV ceftriaxone for now Continue ivf Continue morphine prn pain Continue flomax Leukocytosis Uncontrolled diabetes without dka Accue check and SSI Off Levophed Discussed with daughter at bedside This medical document was created using an electronic medical record system with [employer] direct computerized dictation system. Although this document has been carefully reviewed, there may still be some phonetic and typographical errors. These areas are purely typographical due to imperfections of the software programs, and do not reflect any compromise in the patient's medical care. My Orders Orders - AMILCAR SARABIA MD Procedure Category Date Status Time Ibuprofen Tablet PHA 09/10/24 In Process (Motrin Tablet) 13:00 Amlodipine Tablet PHA 09/10/24 In Process (Norvasc Tablet) 22:00 Basic Metabolic Panel LAB 09/11/24 In Process 06:45 AMILCAR SARABIA MD Sep 11, 2024 11:30
[2024-09-11] MEDS ORDERED: AML5T PO (12:08)
[2024-09-11] MEDS ORDERED: LEVO500T91 PO (12:08)
--- NOTE | 2024-09-11 12:09 | DVHDS2 ---
Discharge Summary Date of Admission Sep 07, 2024 at 07:27 Date of Discharge: Sep 11, 2024 Admitting Diagnosis Sepsis , probable from the PNA. Acute intractable abd pain can be from passed stone ct scan left perinephric fat stranding and hydronephrosis but no kidney stone visualized. Leukocytosis Uncontrolled diabetes without dka Labs/Diagnostic Data: Laboratory Results Test 09/11/24 10:17 09/11/24 08:42 09/10/24 21:53 09/10/24 10:54 POC Glucose 161 mg/dl (70-106) White Blood Count 9.9 10^3/uL (4.4-10.8) Red Blood Count 4.22 10^6/uL (4.0-5.20) Hemoglobin 12.6 g/dL (12.2-16.2) Hematocrit 36.5 % (36.0-46.0) Mean Corpuscular Volume 86.4 fL (80.0-100.0) Mean Corpuscular Hemoglobin 29.8 pg (28.0-32.0) Mean Corpuscular Hemoglobin Concent 34.5 g/dL (32.0-36.0) Red Cell Distribution Width 14.1 % (11.8-14.3) Platelet Count 114 10^3/uL (140-450) Mean Platelet Volume 9.8 fL (6.9-10.8) Neutrophils (%) (Auto) 65.3 % (37.0-80.0) Lymphocytes (%) (Auto) 21.3 % (10.0-50.0) Monocytes (%) (Auto) 10.7 % (0.0-12.0) Eosinophils (%) (Auto) 2.1 % (0.0-7.0) Basophils (%) (Auto) 0.6 % (0.0-2.0) Neutrophils # (Auto) 6.5 10 ^3/uL (1.6-8.6) Lymphocytes # (Auto) 2.1 10 ^3/uL (0.4-5.4) Monocytes # (Auto) 1.1 10 ^3/uL (0-1.3) Eosinophils # (Auto) 0.2 10 ^3/uL (0-0.8) Basophils # (Auto) 0.1 10 ^3/uL (0-0.2) Nucleated Red Blood Cells 0.1 % Sodium Level 142 mmol/L (136-145) Potassium Level 3.2 mmol/L (3.5-5.1) Chloride Level 110 mmol/L (98-107) Carbon Dioxide Level 24 mmol/L (20-31) Anion Gap 8 (5-15) Blood Urea Nitrogen 20 mg/dL (9-23) Creatinine 0.71 mg/dL (0.550-1.02) Glomerular Filtration Rate Calc 98 mL/min (>90) Serum Glucose 113 mg/dL (74-106) Calcium Level 8.4 mg/dL (8.7-10.4) Vancomycin Level Trough 13.0 ug/mL (5-10) Total Bilirubin 0.7 mg/dL (0.2-1.0) Aspartate Amino Transferase (AST) 22 U/L (13-40) Alanine Aminotransferase (ALT) 25 U/L (7-40) Alkaline Phosphatase 347 U/L (46-116) Total Protein 5.6 g/dL (5.7-8.2) Albumin 3.0 g/dL (3.2-4.8) Test 09/10/24 05:09 09/09/24 05:07 09/07/24 12:41 09/07/24 09:49 Differential Total Cells Counted 100.0 (100) Neutrophils % (Manual) 81 (37.0-80.0) Band Neutrophils % (Manual) 6 Lymphocytes % (Manual) 7 (10.0-50.0) Monocytes % (Manual) 6 (0-12) Eosinophils % (Manual) 0 (0-7) Basophils % (Manual) 0 (0.0-2.0) Metamyelocytes % (manual) 0 Myelocytes % (Manual) 0 Promyelocytes % (Manual) 0 Blast Cells % (Manual) 0 Reactive Lymphocytes 0 Platelet Estimate Decreased Random Vancomycin Level 11.1 ug/mL (5-10) Troponin I High Sensitivity 30 ng/L (</=34) Lactic Acid Level 4.6 mmol/L (0.4-2.0) Test 09/07/24 09:30 09/07/24 04:24 09/07/24 03:45 Influenza Type A Antigen Negative (Negative) Influenza Type B Antigen Negative (Negative) SARS-CoV-2 Antigen (Rapid) Negative (NEGATIVE) Prothrombin Time 10.3 sec (9.3-11.8) Prothrombin Time INR 0.97 (0.9-1.15) Activated Partial Thromboplast Time 23.8 SEC (24.5-34.5) D-Dimer, Quantitative 0.57 mg/L FEU (0.0-0.49) B-Type Natriuretic Peptide 19.08 pg/mL (0-100) Lipase 47 U/L (12-53) Urine Color Colorless (Yellow) Urine Clarity Clear (Clear) Urine pH 7.5 (5.0-9.0) Urine Specific Stewart 1.018 (1.001-1.035) Urine Protein 1+ (Negative) Urine Ketones Trace (Negative) Urine Blood Trace /uL (Negative) Urine Nitrite Negative (Negative) Urine Bilirubin Negative (Negative) Urine Urobilinogen Normal mg/dL (Negative) Urine Leukocyte Esterase Negative /uL (Negative) Urine RBC 11 /hpf (0 - 4) Urine Microscopic WBC 6 /HPF (0-5) Urine Squamous Epithelial Cells Few /hpf (<5) Urine Bacteria None seen /hpf (None Seen) Urine Glucose 4+ mg/dL (Normal) Other Laboratory Tests 09/11/24 08:42 Brief Hx & Hospital Course: This is a 58 years old female with past medical history of diabetes, come to emergency department because of left lower quadrant abdominal pain. The patient said the pain started on the left flank and radiates to the front of the lower abdomen. Patient complained of nausea and vomiting. No fever or chill. The patient was found to have left perinephric fat stranding and hydronephrosis but no kidney stone visualized per CT scan abdomen pelvis. She found to have a pneumonia per chest x-ray. The patient was start on Vancomycin and Rocephin. Her blood culture grew E coli sensitive to Levaquin and Rocephin. Vancomycin was discontinue. At 1st the patient was on vasopressor Levophed and fluid resuscitation. The patient also was given a sliding scale insulin and long- acting insulin Lantus. Subsequently the patient doing well. The patient was weaned off vasopressor Levophed. The patient was transferred to telemetry floor instead of ICU. The patient did not have any nausea or vomiting. Her abdominal pain improved. The patient was put on Flomax because of possible stone that passing through her kidney. Today the patient feels better. Echo showed normal EF of 60%. The patient will be discharged home. Advised her to follow up with primary care physician 1-2 weeks. Activity as tolerated. Diet per home diet. Recommend carb controlled diet. Physical exam: HEENT: Normocephalic atraumatic pupils equal react to light and accommodation. Extraocular muscles intact, conjunctiva pink, oropharynx moist, no thrush, no exudate. Lymphatic: No lymphadenopathy Cardiovascular exam: S1, S2 was heard. No murmurs, rubs, gallops Lung: Clear on auscultation bilaterally, no wheeze, rale, rhonchi. GI: Abdominal soft, nondistended, nontenderness, positive bowel sounds. Extremity: No crepitus, cyanosis, edema. Pedal pulses present bilateral. Full range of motion. Skin: Normal turgor, no rash. Psych: Alert, oriented x3. Neurology: No focal deficits, cranial nerve II to XII grossly intact. This medical document was created using an electronic medical record system with [employer] direct computerized dictation system. Although this document has been carefully reviewed, there may still be some phonetic and typographical errors. These areas are purely typographical due to imperfections of the software programs, and do not reflect any compromise in the patient's medical care. Condition at Discharge: Stable Final Diagnosis/Problems List Sepsis , probable from Gram negative PNA. Gram-negative pneumonia E coli bacteremia Acute intractable abd pain can be from passed stone ct scan left perinephric fat stranding and hydronephrosis but no kidney stone visualized. Leukocytosis Uncontrolled diabetes without dka Discharge Disposition: Home Discharge Instruct/Medications Diet: Cardiac 2g Na,low cholest Activity: No Restrictions, As Tolerated Follow Up/Referral: pcp 1-2 weeks Medications: see medlist Scheduled Amlodipine Besylate (Norvasc Tablet), 5 MG PO BID Levofloxacin Hemihydrate (Levaquin 500 Mg), 1 TAB PO DAILY Discharge Statement: "Patient was advised to return to the ER or call 911 if any headaches, dizziness, shortness of breath, chest pain, abdominal pain, bleeding, fevers, or worsening of medical condition. Patient was counseled about treatment plan, medications, possible side effects, patientverbalized understanding. All questions were answered to the best of my ability. This discharge took greater then 30 minutes in planning, reviewing documentation, counseling the patient, and discussing with other team members." ASSESSMENT ASSESSMENT Assessment Bacteremia PNA Date of Service: Sep 11, 2024 Billing Provider: AMILCAR SARABIA MD Common Visit Codes: 93463-XCZ/OBS DISCH DAY >30min AMILCAR SARABIA MD Sep 11, 2024 12:09
[2024-09-11 12:52] LABS: BUN/Creatinine Ratio 28.2 (10.0-20.0); Blood Urea Nitrogen 20 mg/dL (9-23)
[2024-09-11 13:00] VITALS: BP 139/73; PULSE 73; RESP 17; TEMP 98.3; O2SAT 96
[2024-09-11 14:23] VITALS: BP 138/79
[2024-09-11] MEDS ORDERED: VANCOMYCIN 1GM/200ML PM 200 ML IV SCH (21:00)
== END 2024-09-11 15:19 | disposition home or self-care (01) | DRG 871 ==
LOC: ER 03:16 → OVERFLOW 07:27 → ER 07:32 → OVERFLOW 09-09 04:56 → TELE-EAST 09-09 14:12
PROVIDERS: ADMIT Internal Medicine; ATTEND Internal Medicine
PROC: 05HY33Z Insertion of Infusion Device into Upper Vein, Percutaneous Approach (ICD-10-PCS; principal; 2024-09-07)
PROC: B54NZZA Ultrasonography of Left Upper Extremity Veins, Guidance (ICD-10-PCS; 2024-09-07)
DX: A41.51 Sepsis due to Escherichia coli [E. coli] (principal); J12.9 Viral pneumonia, unspecified; J15.69 Pneumonia due to other Gram-negative bacteria; N13.39 Other hydronephrosis; E11.9 Type 2 diabetes mellitus without complications; Z20.822 Contact with and (suspected) exposure to COVID-19; R09.89 Other specified symptoms and signs involving the circulatory and respiratory systems; Z88.5 Allergy status to narcotic agent
CPT/HCPCS: 36415; 36569; 71045; 74177; 78582; 80048; 80053; 80202; 81001; 82565; 82962; 83605; 83690; 83880; 84484; 85007; 85025; 85027; 85379; 85610; 85730; 87040; 87077; 87086; 87186; 87426; 87804; 93306; 96361; 96374; 96375; 99291; G0378; J1815; J2405; J2543